=== PATIENT | female | born 2000 | race Caucasian/White ===

== ENCOUNTER 2019-02-09 17:03 | Emergency (ER) | payer OTHER | END 2019-02-09 18:17 | disposition home or self-care (01) | LOC: ED 17:03 ==

== ENCOUNTER 2019-06-20 12:38 | Emergency (ER) | payer SELFPAY ==
--- NOTE | 2019-06-20 13:29 | ERPHSYRPT ---
- History of Present Illness Time Seen by Provider: 06/20/19 13:05 Source: patient, family Exam Limitations: no limitations Physician History: sore throat, cough, right ear pain for one week. Occasional fever and chills. Timing/Duration: gradual onset Severity: moderate ENT Location: ear (R), throat Prearrival Treatment: over the counter meds Modifying Factors: Improves With: coughing Associated Symptoms: ear pain (R), cough, chills, sore throat, No facial pain/ swelling, No headache, No hearing loss, No motion sickness, No nasal congestion/ drainage, No epistaxis, No neck pain, No poor fluid intake Allergies/Adverse Reactions: Latex, Natural Rubber Allergy (Verified 02/09/19 17:18) Hx Tetanus, Diphtheria Vaccination/Date Given: No Hx Influenza Vaccination/Date Given: No Hx Pneumococcal Vaccination/Date Given: No - Review of Systems Constitutional: No Fever, No Chills Eyes: No Symptoms Ears, Nose, & Throat: No Symptoms Respiratory: Cough, No Dyspnea Cardiac: No Chest Pain, No Edema, No Syncope Abdominal/Gastrointestinal: No Abdominal Pain, No Nausea, No Vomiting, No Diarrhea Genitourinary Symptoms: No Dysuria Musculoskeletal: No Back Pain, No Neck Pain Skin: No Rash Neurological: No Dizziness, No Focal Weakness, No Sensory Changes Psychological: No Symptoms Endocrine: No Symptoms All Other Systems: Reviewed and Negative - Past Medical History Pertinent Past Medical History: Yes Psycho-Social History: Depression - Past Surgical History Past Surgical History: Yes Musculoskeletal: Orthopedic Surgery Other Surgical History: foot and arm. - Social History Smoking Status: Current every day smoker How long have you smoked: 9 Exposure to second hand smoke: Yes Drug Use: none Patient Lives Alone: No - Physical Exam General Appearance: no apparent distress, alert, other (ppatient examined in the presence of her boyfriend) Eye Exam: bilateral eye: PERRL, EOMI Ear Exam: bilateral ear: TM red Nasal Exam: normal inspection Throat Exam: moist mucus membranes, pharynx swelling (pharyngeal erythema), No tonsillar exudate Neck Exam: supple Cardiovascular/Respiratory Exam: normal breath sounds, regular rate/rhythm Abdominal Exam: non-tender, soft Neurologic Exam: alert, oriented x 3, sensation nml, No motor deficits Skin Exam: normal color, warm, dry - Course Nursing assessment & vital signs reviewed: Yes Ordered Tests: Medication Summary Generic Name Dose Route Start Last Admin Trade Name Freq PRN Reason Stop Dose Admin Prednisone 20 mg 06/21/19 13:30 Deltasone 20 Mg PO 06/21/19 13:31 STAT ONE Discontinued Medications Generic Name Dose Route Start Last Admin Trade Name Freq PRN Reason Stop Dose Admin Hydrocodone Bitart/Acetaminophen 1 tab 06/20/19 13:28 Onset 5/325 Mg PO 06/20/19 13:29 STAT ONE Ceftriaxone Sodium 1,000 mg 06/20/19 13:28 Rocephin 1000 Mg Inj IM 06/20/19 13:29 STAT ONE - Progress Progress: unchanged Progress Note: 06/20/19 13:31 afebrile, nontoxic. No right upper limb threatening condition. Symptoms for one week. Counseled pt/family regarding: diagnosis, need for follow-up - Departure Departure Disposition: Home Clinical Impression: Acute otitis media, bilateral Acute pharyngitis Qualifiers: Pharyngitis/tonsillitis etiology: unspecified etiology Qualified Code(s): J02.9 - Acute pharyngitis, unspecified Acute bronchitis Qualifiers: Bronchitis organism: unspecified organism Qualified Code(s): J20.9 - Acute bronchitis, unspecified Condition: Good Critical Care Time: No Referrals: DOCTOR,NO FAMILY [Primary Care Provider] - 06/22/19 Instructions: Sore Throat, Adult (DC), Ear Infections (Otitis Media) (DC), Acute Bronchitis, Adult (DC) Prescriptions: Azithromycin 250 mg [Zithromax 250 MG TABLET] 250 mg PO ZPACK #6 tablet
[2019-06-20 13:33] VITALS: BP 109/78; PULSE 64; O2SAT 99
[2019-06-20] MEDS ORDERED: Zithromax 250 MG TABLET ONE (13:40)
[2019-06-20] MEDS ORDERED: DELTASONE 20 MG ONE (13:40)
[2019-06-20] MEDS ORDERED: XYLOCAINE 1% HCL 20 ML MDV ONE (13:41)
[2019-06-20] MEDS ORDERED: NORCO 5/325 MG ONE (13:41)
[2019-06-20] MEDS ORDERED: Rocephin 1000 MG INJ ONE (13:41)
[2019-06-20] MEDS: Rocephin 1000 MG INJ IM ONE (13:50)
[2019-06-20] MEDS: DELTASONE 20 MG PO ONE (13:52)
[2019-06-20] MEDS: Zithromax 250 MG TABLET PO ONE (13:52)
[2019-06-20] MEDS: NORCO 5/325 MG PO ONE (13:52)
== END 2019-06-20 14:16 | disposition home or self-care (01) ==
LOC: ED 12:38
DX: H66.93 Otitis media, unspecified, bilateral (principal); J02.9 Acute pharyngitis, unspecified; J20.9 Acute bronchitis, unspecified
CPT/HCPCS: 96372; 99284; J0696; A9270-GY

== ENCOUNTER 2019-12-17 14:27 | Emergency (ER) | payer OTHER ==
--- NOTE | 2019-12-17 14:39 | ERPHSYRPT ---
- History of Present Illness Time Seen by Provider: 12/17/19 14:39 Source: patient Exam Limitations: no limitations Physician History: This is a 19-year-old white female who was walking with her dog 2 days ago and the leash wrapped around patient's left ankle causing a abrasion, some bruising and pain. Patient has been walking on it but today there is been more swelling and more pain. She is concerned there may be a fracture present. Patient's last tetanus shot was within the last 10 years Method of Injury: twisted Occurred: days ago (2) Severity of Pain-Max: mild Severity of Pain-Current: mild Lower Extremities Pain: foot: left, ankle: left Modifying Factors: Improves With: movement Associated Symptoms: other (Hurts to bear weight but is able to do so) Allergies/Adverse Reactions: Latex, Natural Rubber Allergy (Verified 12/17/19 14:44) Home Medications: No Reportable Medications [No Reported Medications] 12/17/19 [History] Hx Tetanus, Diphtheria Vaccination/Date Given: No Hx Influenza Vaccination/Date Given: No Hx Pneumococcal Vaccination/Date Given: No Travel Risk - International Travel Have you traveled outside of the country in past 3 weeks: No - Coronavirus Screening Are you exhibiting any of the following symptoms?: No Close contact with a COVID-19 positive Pt in past 14-21 Days: No - Review of Systems Constitutional: No Symptoms Eyes: No Symptoms Ears, Nose, & Throat: No Symptoms Respiratory: No Symptoms Cardiac: No Symptoms Abdominal/Gastrointestinal: No Symptoms Genitourinary Symptoms: No Symptoms Musculoskeletal: No Symptoms Skin: No Symptoms Neurological: No Symptoms Psychological: No Symptoms Endocrine: No Symptoms Hematologic/Lymphatic: No Symptoms Immunological/Allergic: No Symptoms All Other Systems: Reviewed and Negative - Past Medical History Pertinent Past Medical History: Yes Neurological History: No Pertinent History ENT History: No Pertinent History Cardiac History: No Pertinent History Respiratory History: No Pertinent History Endocrine Medical History: No Pertinent History Musculoskeletal History: No Pertinent History GI Medical History: No Pertinent History History: No Pertinent History Psycho-Social History: Depression Female Reproductive Disorders: No Pertinent History - Past Surgical History Past Surgical History: Yes Neuro Surgical History: No Pertinent History Cardiac: No Pertinent History Respiratory: No Pertinent History Gastrointestinal: No Pertinent History Genitourinary: No Pertinent History Musculoskeletal: Orthopedic Surgery Female Surgical History: No Pertinent History Other Surgical History: foot and arm. - Social History Smoking Status: Current every day smoker How long have you smoked: 9 Exposure to second hand smoke: Yes Drug Use: none Patient Lives Alone: No - Nursing Vital Signs Nursing Vital Signs: Initial Vital Signs Temperature 97.9 F 12/17/19 14:33 Pulse Rate 70 12/17/19 14:33 Blood Pressure 139/83 12/17/19 14:33 O2 Sat by Pulse Oximetry 98 12/17/19 14:33 Pain Scale Pain Intensity 6 - Physical Exam General Appearance: no apparent distress, alert, anxiety Eyes, Ears, Nose, Throat Exam: normal ENT inspection, moist mucous membranes Neck Exam: normal inspection, non-tender, supple, full range of motion Cardiovascular/Respiratory Exam: chest non-tender, no respiratory distress Gastrointestinal/Abdominal Exam: non-tender Back Exam: normal inspection, normal range of motion, No CVA tenderness, No vertebral tenderness Hips Exam: bilateral: non-tender, normal inspection, normal range of motion, no evidence of injury Legs Exam: bilateral leg: non-tender, normal inspection, normal range of motion, no evidence of injury Knees Exam: bilateral knee: non-tender, normal inspection, normal range of motion, no evidence of injury Ankle Exam: right ankle: non-tender, normal inspection, normal range of motion, no evidence of injury, left ankle: abrasions/laceration (Abrasion left ankle), ecchymosis, soft tissue tenderness, swelling Foot Exam: right foot: non-tender, normal inspection, normal range of motion, no evidence of injury, left foot: soft tissue tenderness, swelling Neuro/Tendon Exam: normal sensation, normal motor functions, normal tendon functions, responds to pain Mental Status Exam: alert, oriented x 3, cooperative Skin Exam: normal color, warm, dry SpO2 Interpretation: normal O2 Delivery: Room Air Ordered Tests: Active Orders 24 hr Category Date Time Status ANKLE (3 VIEWS) Stat Exams 12/17/19 14:46 Ordered FOOT (MINIMUM 3 VIEWS) Stat Exams 12/17/19 14:46 Ordered LOWER LEG Stat Exams 12/17/19 14:46 Ordered - Progress Progress: unchanged Progress Note: 12/17/19 15:21 X-ray of left ankle, lower leg, foot reveal no acute fracture or dislocation Counseled pt/family regarding: diagnosis, need for follow-up, rad results - Departure Departure Disposition: Home Clinical Impression: Left ankle sprain Condition: Stable Critical Care Time: No Referrals: KIRSTEN BEGUM MD [Primary Care Provider] - [id number] Additional Instructions: Keep left leg elevated above level of heart when not ambulating. Weightbearing as tolerated. Ice pack to area 3 times a day for the next 48 hours. Use Tylenol and ibuprofen for pain control. Keep the abrasion site clean with soap and water and may apply once a day antibiotic ointment. Follow-up with [facility] orthopedic clinic if symptoms persist.
[2019-12-17] MEDS ORDERED: BACIGUENT PACKET TP ONE (15:26)
[2019-12-17 15:45] VITALS: BP 101/62; PULSE 60; O2SAT 96
--- NOTE | 2019-12-17 20:04 | XRAY ---
Indication: Pain following injury. Comparison: None 3 view left ankle demonstrates minimal lateral soft tissue swelling. No other bony, articular, or soft tissue abnormalities.
--- NOTE | 2019-12-17 20:06 | XRAY ---
Indication: Pain following injury. Comparison: None AP/lateral left lower leg obtained. No bony, articular, or soft tissue abnormalities.
--- NOTE | 2019-12-17 20:06 | XRAY ---
Indication: Pain following injury. Comparison: None 3 nonweightbearing views left foot demonstrates tiny navicular accessory ossicle. No other bony, articular, or soft tissue abnormalities.
== END 2019-12-17 15:46 | disposition home or self-care (01) ==
LOC: ED 14:27
DX: S93.402A Sprain of unspecified ligament of left ankle, initial encounter (principal); S90.512A Abrasion, left ankle, initial encounter; M25.572 Pain in left ankle and joints of left foot; W01.198A Fall on same level from slipping, tripping and stumbling with subsequent striking against other object, initial encounter; Y93.K1 Activity, walking an animal; Y92.89 Other specified places as the place of occurrence of the external cause; R58 Hemorrhage, not elsewhere classified
CPT/HCPCS: 73590; 73610; 73630; 99284; A9270-GY

== ENCOUNTER 2022-11-22 17:11 | Emergency (ER) | payer OTHER ==
[2022-11-22 17:21] VITALS: O2SAT 98
--- NOTE | 2022-11-22 18:02 | ERPHSYRPT ---
- History of Present Illness Source: patient Exam Limitations: no limitations Patient Subjective Stated Complaint: Pt states "I was drinking last night and got stupid and hit my head on my ceiling and I think I broke my foot." Triage Nursing Assessment: Pt presented alert and oriented X 3, skin pwd. Pt ambulates with a limp. PT has bruise noted to center of forehead and bruising left dorsal foot, tenderness noted as well. Physician History: 22 yo wf hit her head on her ceiling and her L foot on a cabinet 2 days ago while drinking alcohol. She denies LOC but was dazed. Her L foot pain is moderate, and her headache is minimal. She denies C, T, and L-spine pain/chest pain/abdominal pain/UE pain/Hip pain/. Occurred: other (2 nights ago) Reason for Fall: lost balance (While drinking) Injuries/Pain Location: head, lower (L foot) Loss of Consciousness: no loss of consciousness, dazed Quality: aching Severity of Pain-Max: moderate Severity of Pain-Current: moderate Modifying Factors: Improves With: movement Associated Symptoms (Fall): denies symptoms Allergies/Adverse Reactions: Latex, Natural Rubber Allergy (Verified 02/03/21 12:48) Home Medications: No Reportable Medications [No Reported Medications] 12/17/19 [History] Hx Tetanus, Diphtheria Vaccination/Date Given: No Hx Influenza Vaccination/Date Given: No Hx Pneumococcal Vaccination/Date Given: No Immunizations Up to Date: Yes Travel Risk - International Travel Have you traveled outside of the country in past 3 weeks: No - Coronavirus Screening Are you exhibiting any of the following symptoms?: No Close contact with a COVID-19 positive Pt in past 14-21 Days: No - Vaccine Status Have you recieved a Covid-19 vaccination: No - Review of Systems Constitutional: No Symptoms Eyes: No Symptoms Ears, Nose, & Throat: No Symptoms Respiratory: No Symptoms Cardiac: No Symptoms Abdominal/Gastrointestinal: No Symptoms Genitourinary Symptoms: No Symptoms Skin: No Symptoms Neurological: No Symptoms Psychological: No Symptoms Endocrine: No Symptoms Hematologic/Lymphatic: No Symptoms Immunological/Allergic: No Symptoms - Past Medical History Pertinent Past Medical History: Yes Neurological History: No Pertinent History ENT History: No Pertinent History Cardiac History: No Pertinent History Respiratory History: No Pertinent History Endocrine Medical History: No Pertinent History Musculoskeletal History: No Pertinent History GI Medical History: No Pertinent History History: No Pertinent History Psycho-Social History: Depression Female Reproductive Disorders: No Pertinent History - Past Surgical History Past Surgical History: Yes Neuro Surgical History: No Pertinent History Cardiac: No Pertinent History Respiratory: No Pertinent History Gastrointestinal: No Pertinent History Genitourinary: No Pertinent History Musculoskeletal: Orthopedic Surgery Female Surgical History: No Pertinent History Other Surgical History: foot and arm. - Social History Smoking Status: Current every day smoker How long have you smoked: 9 Exposure to second hand smoke: Yes Drug Use: none Patient Lives Alone: No - Female History Hx Last Menstrual Period: 11/07/2022 Hx Now: No - Nursing Vital Signs Nursing Vital Signs: Initial Vital Signs Temperature 98.6 F 11/22/22 17:17 Pulse Rate 75 11/22/22 17:17 Respiratory Rate 20 11/22/22 17:17 Blood Pressure 150/83 11/22/22 17:17 O2 Sat by Pulse Oximetry 98 11/22/22 17:17 Pain Scale Pain Intensity 4 Hypertensive - Rene Coma Score Best Eye Response (Atl[place]): (4) open spontaneously Best Verbal Response (Rene): (5) oriented Best Motor Response ([place]): (6) obeys commands [place] Total: 15 - Physical Exam General Appearance: no apparent distress Head Injury: swelling (Small glabellar hematoma) Eye Exam: PERRL/EOMI, eyes nml inspection ENT Exam: airway nml, No evidence of ENT injury, No clear fluid (ears), No clear fluid (nose) Neck Exam: supple, trachea midline (C-spine NTTP) Respiratory/Chest Exam: normal breath sounds, No chest tenderness, No respiratory distress Cardiovascular Exam: normal heart sounds, regular rate/rhythm, normal peripheral pulses, No murmur Gastrointestinal Exam: soft, normal bowel sounds, No tenderness Back Exam: normal inspection, No vertebral tenderness Extremity Exam: pelvis stable, other (L dorsal foot TTP w small ecchymotic area) Peripheral Pulses: carotid (R): 2+, carotid (L): 2+ Neurologic Exam: alert, oriented x 3, cooperative, muck miner II-XII nml as tested, normal mood/affect, nml cerebellar function, nml station & gait, sensation nml, No motor deficits, No sensory deficit Skin Exam: normal color, warm, dry SpO2 Interpretation: normal SpO2: 98 O2 Delivery: Room Air - Course Nursing assessment & vital signs reviewed: Yes - Radiology Exams Foot X-ray Interpretation: Interpreted by me (Fx L 5th prox phalanyx) - CT Exams Head CT Interpretation: Tele-radiologist Report (Head CT neg ) Ordered Tests: Active Orders 24 hr Category Date Time Status Daniel Bandage Application -[facility] STAT Care 11/22/22 18:39 Completed Splint STAT Care 11/22/22 18:35 Completed FOOT (MINIMUM 3 VIEWS) Stat Exams 11/22/22 17:27 Taken HEAD WITHOUT CONTRAST [CT] Stat Exams 11/22/22 17:27 Completed - Progress Progress Note: 11/22/22 19:25 Nursing note and vital signs reviewed No food or housing insecurities noted 11/22/22 19:26 L foot XR w L 5th prox digit per ER read CT head neg per Telerad L foot daniel wrap/post-op shoe per nursing/NVI Pt refused pain meds and asked for a work excuse. She states that she's ok for tomorrow. 11/22/22 19:28 Pt advised to f/u w PCP or Ortho Clinic Counseled pt/family regarding: diagnosis, need for follow-up, rad results Medical Desision Making - Diagnostic Testing Radiological Interpretation: Interpreted by me, Teleradiologist Report - Risk of complications Low Risk: Low risk of morbidity from additional dx testing or treatment - Departure Departure Disposition: Home Clinical Impression: Fracture of toe of left foot, Minor head injury Condition: Stable Critical Care Time: No Referrals: JAYASHREE SPEAR MD [Primary Care Provider] - Follow up/PCP as directed ORTHO - JUSTA LAU NP [NON-STAFF PHY W/O PRIVILEGES] - Follow up/PCP as directed Instructions: Toe Fracture (DC), Minor Head Injury (DC) Additional Instructions: Motrin/Tylenol for pain Daniel wrap post-op shoe for 3-4 days Follow up with your family MD or Orthopedic clinic M-Fr 8-10AM Weight bearing as tolerated Forms: Work/School Release Form
--- NOTE | 2022-11-22 18:31 | XRAY ---
CLINICAL HISTORY:Hit head on ceiling a few days ago; COMPARISON:None; TECHNIQUES:Contiguous, multislice, nonenhanced CT scan of the brain in the axial plane with multiplanar reconstructions in bony and soft tissue windows, CTDI- 53.92 mGy ;Total DLP-1058.31 mGy.cm; FINDINGS: Normal CT attenuation of both cerebral hemispheres with no areas of abnormal attenuation values. No suspicious space-occupying lesions. No intra or extra-axial collections of fresh blood density. Normal size and shape of the ventricles, basal cisterns and cortical sulci. Basal ganglia, thalamus and internal capsule appear normal. Brainstem and irena appear normal. No shift of midline structures. Unremarkable posterior fossa. Largely preserved cranial calvarial bones. Visualized paranasal sinuses appear clear. IMPRESSION: No acute intracranial abnormality. Electronically Signed by: Soren Moreno MD. (11/22/2022 17:25:32 [employer])
[2022-11-22 18:40] VITALS: BP 120/68; PULSE 70
--- NOTE | 2022-11-22 21:15 | XRAY ---
Indication: Pain following injury. Comparison: December 17, 2019 3 nonweightbearing views left foot demonstrates new nondisplaced oblique fracture base 5th proximal phalanx with soft tissue swelling. No other bony, articular, or soft tissue abnormalities.
== END 2022-11-22 18:58 | disposition home or self-care (01) ==
LOC: ED 17:11
DX: S92.515A Nondisplaced fracture of proximal phalanx of left lesser toe(s), initial encounter for closed fracture (principal); W22.03XA Walked into furniture, initial encounter; S09.90XA Unspecified injury of head, initial encounter; W22.8XXA Striking against or struck by other objects, initial encounter; Z28.310 Unvaccinated for COVID-19; Z72.0 Tobacco use
CPT/HCPCS: 70450; 73630; 99283

== ENCOUNTER 2023-06-22 22:12 | Emergency (ER) | payer SELFPAY ==
[2023-06-22 22:40] VITALS: RESP 16; TEMP 97.8; O2SAT 100
[2023-06-22 23:06] LABS: Absolute Neutrophil Ct (ANC) 3.97 x10^3/uL (1.4-6.9); BASOPHIL % 0.8 % (0.0-0.4); Basophil (Absolute #) 0.05 x10^3/uL (0-0.4); Eosinophil % 3.8 % (0.00-5.0); Eosinophil (Absolute #) 0.25 x10^3/uL (0-0.5); Hematocrit 44.3 % (35-47); Hemoglobin 14.8 g/dL (12.0-16.0); IMMATURE GRAN # 0.03 x10^3u/L (0.00-0.03); IMMATURE GRAN % 0.5 % (0.00-0.4); Lymphocyte (Absolute #) 1.51 x10^3/uL (1.0-4.6); Lymphocytes % 22.8 % (24.0-44.0); Mean Cell Volume 92.3 fL (78-100); Mean Corpuscular Hemoglobin 30.8 pg (26-32); Mean Corpuscular Hgb Concent. 33.4 g/dL (32-36); Mean Platelet Volume 9.5 fL (7.5-11.0); Monocytes % 12.1 % (0.0-12.0); Platelet Count 231 x10^3/uL (150-450); Red Cell Distribution Width 12.2 % (11.5-14.0); White Blood Count 6.6 x10^3/uL (4.0-10.5)
[2023-06-22 23:20] LABS: ALBUMIN 4.1 g/dL (3.5-5.0); ANION GAP 10.3 MEQ/L (5-15); BILIRUBIN,TOTAL 0.8 mg/dL (0.2-1.3); Calcium 9.3 mg/dL (8.4-10.2); Creatinine 1 0.66 mg/dL (0.52-1.04); EST GLOMERULAR FILTRATION RATE 124.8 ML/MIN; Potassium 3.9 mmol/L (3.5-5.1); Total Protein 6.8 g/dL (6.3-8.2)
[2023-06-22 23:30] LABS: Appearance Clear (Clear); Bilirubin Negative (Negative); Blood Large (Negative); Epithelial Cells Few /HPF (None Seen); Glucose, Urine Negative (Negative); Hyaline Casts NONE SEEN /LPF (0-2); Ketones Negative (Negative); Leukocyte Esterase Small (Negative); Nitrite Negative (Negative); Ph 6.5 (4.6-8.0); Protein,Urine Dip Negative (Negative); RBC 0-2 /HPF (0-5); Urobilinogen 0.2 mg/dL (0.2)
[2023-06-22 23:31] LABS: Bacteria Few /HPF (None Seen)
[2023-06-22 23:32] LABS: ADD URINE CULTURE? YES (NO); Trichomonas Moderate /HPF (None Seen)
--- NOTE | 2023-06-22 23:37 | ERPHSYRPT ---
- History of Present Illness Time Seen by Provider: 06/22/23 22:30 Source: patient Exam Limitations: no limitations Patient Subjective Stated Complaint: pt states she has been having some vaginal bleeding for approx a week. states today she has been having some pain that f eels like period cramping. states pain is in her lower back. Triage Nursing Assessment: pt alert and oriented. answers questions approp. pt ambulates into room with steady gait noted. respirations nonlabored. skin warm and dry. pt reports pain in lower back which feels like her period cramps. Physician History: Patient is a 23-year-old female currently 10 weeks by dates presents to our ED for evaluation of vaginal bleeding cramping and low back pain. Symptoms started approximately 1 week ago. Patient states she has been passing large clots throughout the day. No active bleeding at this time. Symptoms are mild to moderate in intensity. No specific worsening or improving factors. Patient voices no other complaints or concerns at this time. Portions of this note were created with voice recognition technology. There may be grammatical, spelling, punctuation or sound alike errors Timing/Duration: today Severity: moderate Modifying Factors: Improves With: nothing Associated Symptoms: denies symptoms Allergies/Adverse Reactions: Latex, Natural Rubber Allergy (Verified 06/22/23 22:40) Hx Tetanus, Diphtheria Vaccination/Date Given: No Hx Influenza Vaccination/Date Given: No Hx Pneumococcal Vaccination/Date Given: No Immunizations Up to Date: No Travel Risk - International Travel Have you traveled outside of the country in past 3 weeks: No - Coronavirus Screening Are you exhibiting any of the following symptoms?: No Close contact with a COVID-19 positive Pt in past 14-21 Days: No - Vaccine Status Have you recieved a Covid-19 vaccination: No - Review of Systems Constitutional: No Symptoms, No Fever, No Chills Eyes: No Symptoms Ears, Nose, & Throat: No Symptoms Respiratory: No Symptoms, No Cough, No Dyspnea Cardiac: No Symptoms, No Chest Pain, No Edema, No Syncope Abdominal/Gastrointestinal: No Symptoms, No Abdominal Pain, No Nausea, No Vo miting, No Diarrhea Genitourinary Symptoms: No Symptoms, No Dysuria Musculoskeletal: No Symptoms, No Back Pain, No Neck Pain Skin: No Symptoms, No Rash Neurological: No Symptoms, No Dizziness, No Focal Weakness, No Sensory Changes Psychological: No Symptoms Endocrine: No Symptoms Hematologic/Lymphatic: No Symptoms Immunological/Allergic: No Symptoms All Other Systems: Reviewed and Negative - Past Medical History Pertinent Past Medical History: Yes Neurological History: No Pertinent History ENT History: No Pertinent History Cardiac History: No Pertinent History Respiratory History: No Pertinent History Endocrine Medical History: No Pertinent History Musculoskeletal History: No Pertinent History GI Medical History: No Pertinent History History: No Pertinent History Psycho-Social History: Depression Female Reproductive Disorders: No Pertinent History - Past Surgical History Past Surgical History: Yes Neuro Surgical History: No Pertinent History Cardiac: No Pertinent History Respiratory: No Pertinent History Gastrointestinal: No Pertinent History Genitourinary: No Pertinent History Musculoskeletal: Orthopedic Surgery Female Surgical History: No Pertinent History Other Surgical History: foot and arm. - Social History Smoking Status: Current every day smoker How long have you smoked: 10yrs Exposure to second hand smoke: Yes Drug Use: none Patient Lives Alone: No - Female History Hx Now: Yes Gestational Age: 10weeks - Nursing Vital Signs Nursing Vital Signs: Initial Vital Signs Temperature 97.8 F 06/22/23 22:21 Pulse Rate 64 06/22/23 22:21 Respiratory Rate 16 06/22/23 22:21 Blood Pressure 114/68 06/22/23 22:21 O2 Sat by Pulse Oximetry 100 06/22/23 22:21 Pain Scale Pain Intensity 2 - Physical Exam General Appearance: no apparent distress, alert Eye Exam: PERRL/EOMI, eyes nml inspection Ears, Nose, Throat Exam: normal ENT inspection, TMs normal, pharynx normal, moist mucous membranes Neck Exam: normal inspection, non-tender, supple, full range of motion Respiratory Exam: normal breath sounds, lungs clear, airway intact, No respi ratory distress Cardiovascular Exam: regular rate/rhythm, normal heart sounds, normal peripheral pulses Gastrointestinal/Abdomen Exam: soft, normal bowel sounds, No tenderness, No mass Pelvic Exam: normal external exam, vaginal bleeding, No adnexal tenderness, No adnexal mass, No cervical motion tenderness, No uterine tenderness, No vaginal discharge Back Exam: normal inspection, normal range of motion, No CVA tenderness, No vertebral tenderness Extremity Exam: normal inspection, normal range of motion, pelvis stable Neurologic Exam: alert, oriented x 3, cooperative, normal mood/affect, nml cerebellar function, nml station & gait, sensation nml, No motor deficits Skin Exam: normal color, warm, dry, No rash Lymphatic Exam: No adenopathy SpO2 Interpretation: normal SpO2: 100 O2 Delivery: Room Air - Course Nursing assessment & vital signs reviewed: Yes Ordered Tests: Active Orders 24 hr Category Date Time Status IV Insertion STAT Care 06/22/23 22:37 Active CBC W DIFF Stat Lab 06/22/23 23:00 Completed CMP Stat Lab 06/22/23 23:00 Completed CULTURE,URINE Stat Lab 06/22/23 22:45 Received HCG, Quantitative (Inhouse) Stat Lab 06/22/23 23:00 Completed UA W/RFX UR CULTURE Stat Lab 06/22/23 22:45 Completed Medication Summary Discontinued Medications Generic Name Dose Route Start Last Admin Trade Name Luis PRN Reason Stop Dose Admin Metronidazole 500 mg 06/23/23 01:35 06/23/23 01:37 Metronidazole 500 Mg Tablet PO 06/23/23 01:36 500 mg STAT ONE Administration Metronidazole Confirm 06/23/23 01:35 Metronidazole 500 Mg Tablet Administered 06/23/23 01:36 Dose 500 mg .ROUTE .STK-MED ONE Nitrofurantoin Macrocrystals 100 mg 06/23/23 01:34 06/23/23 01:37 Nitrofurantoin Macro 100 Mg Capsule PO 06/23/23 01:35 100 mg STAT ONE Administration Nitrofurantoin Macrocrystals Confirm 06/23/23 01:35 Nitrofurantoin Macro 100 Mg Capsule Administered 06/23/23 01:36 Dose 100 mg .ROUTE .STK-MED ONE Lab/Rad Data: Laboratory Result Diagrams 06/22/23 23:00 06/22/23 23:00 Laboratory Results 06/23/23 06/22/23 06/22/23 Range/Units 00:15 Unknown 23:00 WBC (4.0-10.5) x10^3/uL RBC (4.1-5.4) x10^6/uL Hgb (12.0-16.0) g/dL Hct (35-47) % MCV (78-100) fL MCH (26-32) pg MCHC (32-36) g/dL RDW (11.5-14.0) % Plt Count (150-450) x10^3/uL MPV (7.5-11.0) fL Gran % (36.0-66.0) % Immature Gran % (Auto) (0.00-0.4) % Nucleat RBC Rel Count (0.00-0.1) % Eos # (Auto) (0-0.5) x10^3/uL Immature Gran # (Auto) (0.00-0.03) x10^3u/L Absolute Lymphs (auto) (1.0-4.6) x10^3/uL Absolute Monos (auto) (0.0-1.3) x10^3/uL Absolute Nucleated RBC (0.00-0.01) x10^3u/L Lymphocytes % (24.0-44.0) % Monocytes % (0.0-12.0) % Eosinophils % (0.00-5.0) % Basophils % (0.0-0.4) % Absolute Granulocytes (1.4-6.9) x10^3/uL Basophils # (0-0.4) x10^3/uL Sodium (137-145) mmol/L Potassium (3.5-5.1) mmol/L Chloride (98-107) mmol/L Carbon Dioxide (22-30) mmol/L Anion Gap (5-15) MEQ/L BUN (7-17) mg/dL Creatinine (0.52-1.04) mg/dL Estimated GFR ML/MIN Glucose (74-106) mg/dL Calcium (8.4-10.2) mg/dL Total Bilirubin (0.2-1.3) mg/dL AST (14-36) U/L ALT (0-35) U/L Alkaline Phosphatase (38-126) U/L Serum Total Protein (6.3-8.2) g/dL Albumin (3.5-5.0) g/dL Beta HCG, Quant 87778 mIU/ml Urine Color (Yellow) Urine Appearance (Clear) Urine pH (4.6-8.0) Ur Specific [place] (1.005-1.030) Urine Protein (Negative) Urine Glucose (UA) (Negative) mg/dL Urine Ketones (Negative) Urine Blood (Negative) Urine Nitrite (Negative) Urine Bilirubin (Negative) Urine Urobilinogen (0.2) mg/dL Ur Leukocyte Esterase (Negative) U Hyaline Cast (Auto) (0-2) /LPF Urine Microscopic RBC (0-5) /HPF Urine Microscopic WBC (0-5) /HPF Ur Epithelial Cells (None Seen) /HPF Urine Bacteria (None Seen) /HPF Urine Trichomonas (None Seen) /HPF Urine Culture Reflexed (NO) Vaginal Grecia Group NOT DETECTED (NEGATIVE) Grecia species NOT DETECTED (NEGATIVE) Chlamydia DNA Probe NOT DETECTED (NEGATIVE) N.gonorrhoeae DNA Probe NOT DETECTED (NEGATIVE) T. vaginalis (PCR) DETECTED A (NEGATIVE) Bact vaginosis (PCR) POSITIVE A (NEGATIVE) ABO Group Rh Factor Antibody Screen (NEGATIVE) 06/22/23 06/22/23 06/22/23 Range/Units 23:00 23:00 23:00 WBC 6.6 (4.0-10.5) x10^3/uL RBC 4.80 (4.1-5.4) x10^6/uL Hgb 14.8 (12.0-16.0) g/dL Hct 44.3 (35-47) % MCV 92.3 (78-100) fL MCH 30.8 (26-32) pg MCHC 33.4 (32-36) g/dL RDW 12.2 (11.5-14.0) % Plt Count 231 (150-450) x10^3/uL MPV 9.5 (7.5-11.0) fL Gran % 60.0 (36.0-66.0) % Immature Gran % (Auto) 0.5 H (0.00-0.4) % Nucleat RBC Rel Count 0.0 (0.00-0.1) % Eos # (Auto) 0.25 (0-0.5) x10^3/uL Immature Gran # (Auto) 0.03 (0.00-0.03) x10^3u/L Absolute Lymphs (auto) 1.51 (1.0-4.6) x10^3/uL Absolute Monos (auto) 0.80 (0.0-1.3) x10^3/uL Absolute Nucleated RBC 0.00 (0.00-0.01) x10^3u/L Lymphocytes % 22.8 L (24.0-44.0) % Monocytes % 12.1 H (0.0-12.0) % Eosinophils % 3.8 (0.00-5.0) % Basophils % 0.8 (0.0-0.4) % Absolute Granulocytes 3.97 (1.4-6.9) x10^3/uL Basophils # 0.05 (0-0.4) x10^3/uL Sodium 135 L (137-145) mmol/L Potassium 3.9 (3.5-5.1) mmol/L Chloride 106 (98-107) mmol/L Carbon Dioxide 23 (22-30) mmol/L Anion Gap 10.3 (5-15) MEQ/L BUN 11 (7-17) mg/dL Creatinine 0.66 (0.52-1.04) mg/dL Estimated GFR 124.8 ML/MIN Glucose 99 (74-106) mg/dL Calcium 9.3 (8.4-10.2) mg/dL Total Bilirubin 0.80 (0.2-1.3) mg/dL AST 22 (14-36) U/L ALT 13 (0-35) U/L Alkaline Phosphatase 48 (38-126) U/L Serum Total Protein 6.8 (6.3-8.2) g/dL Albumin 4.1 (3.5-5.0) g/dL Beta HCG, Quant mIU/ml Urine Color (Yellow) Urine Appearance (Clear) Urine pH (4.6-8.0) Ur Specific [place] (1.005-1.030) Urine Protein (Negative) Urine Glucose (UA) (Negative) mg/dL Urine Ketones (Negative) Urine Blood (Negative) Urine Nitrite (Negative) Urine Bilirubin (Negative) Urine Urobilinogen (0.2) mg/dL Ur Leukocyte Esterase (Negative) U Hyaline Cast (Auto) (0-2) /LPF Urine Microscopic RBC (0-5) /HPF Urine Microscopic WBC (0-5) /HPF Ur Epithelial Cells (None Seen) /HPF Urine Bacteria (None Seen) /HPF Urine Trichomonas (None Seen) /HPF Urine Culture Reflexed (NO) Vaginal Grecia Group (NEGATIVE) Grecia species (NEGATIVE) Chlamydia DNA Probe (NEGATIVE) N.gonorrhoeae DNA Probe (NEGATIVE) T. vaginalis (PCR) (NEGATIVE) Bact vaginosis (PCR) (NEGATIVE) ABO Group O Rh Factor POSITIVE Antibody Screen NEGATIVE (NEGATIVE) 06/22/23 Range/Units 22:45 WBC (4.0-10.5) x10^3/uL RBC (4.1-5.4) x10^6/uL Hgb (12.0-16.0) g/dL Hct (35-47) % MCV (78-100) fL MCH (26-32) pg MCHC (32-36) g/dL RDW (11.5-14.0) % Plt Count (150-450) x10^3/uL MPV (7.5-11.0) fL Gran % (36.0-66.0) % Immature Gran % (Auto) (0.00-0.4) % Nucleat RBC Rel Count (0.00-0.1) % Eos # (Auto) (0-0.5) x10^3/uL Immature Gran # (Auto) (0.00-0.03) x10^3u/L Absolute Lymphs (auto) (1.0-4.6) x10^3/uL Absolute Monos (auto) (0.0-1.3) x10^3/uL Absolute Nucleated RBC (0.00-0.01) x10^3u/L Lymphocytes % (24.0-44.0) % Monocytes % (0.0-12.0) % Eosinophils % (0.00-5.0) % Basophils % (0.0-0.4) % Absolute Granulocytes (1.4-6.9) x10^3/uL Basophils # (0-0.4) x10^3/uL Sodium (137-145) mmol/L Potassium (3.5-5.1) mmol/L Chloride (98-107) mmol/L Carbon Dioxide (22-30) mmol/L Anion Gap (5-15) MEQ/L BUN (7-17) mg/dL Creatinine (0.52-1.04) mg/dL Estimated GFR ML/MIN Glucose (74-106) mg/dL Calcium (8.4-10.2) mg/dL Total Bilirubin (0.2-1.3) mg/dL AST (14-36) U/L ALT (0-35) U/L Alkaline Phosphatase (38-126) U/L Serum Total Protein (6.3-8.2) g/dL Albumin (3.5-5.0) g/dL Beta HCG, Quant mIU/ml Urine Color Yellow (Yellow) Urine Appearance Clear (Clear) Urine pH 6.5 (4.6-8.0) Ur Specific [place] 1.020 (1.005-1.030) Urine Protein Negative (Negative) Urine Glucose (UA) Negative (Negative) mg/dL Urine Ketones Negative (Negative) Urine Blood Large A (Negative) Urine Nitrite Negative (Negative) Urine Bilirubin Negative (Negative) Urine Urobilinogen 0.2 (0.2) mg/dL Ur Leukocyte Esterase Small A (Negative) U Hyaline Cast (Auto) NONE SEEN (0-2) /LPF Urine Microscopic RBC 0-2 (0-5) /HPF Urine Microscopic WBC 11-20 A (0-5) /HPF Ur Epithelial Cells Few (None Seen) /HPF Urine Bacteria Few A (None Seen) /HPF Urine Trichomonas Moderate A (None Seen) /HPF Urine Culture Reflexed YES (NO) Vaginal Grecia Group (NEGATIVE) Grecia species (NEGATIVE) Chlamydia DNA Probe (NEGATIVE) N.gonorrhoeae DNA Probe (NEGATIVE) T. vaginalis (PCR) (NEGATIVE) Bact vaginosis (PCR) (NEGATIVE) ABO Group Rh Factor Antibody Screen (NEGATIVE) - Progress Progress: improved Progress Note: Patient is 23-year-old female presents to our ED for evaluation of vaginal bleeding. Patient is reportedly 10 weeks . Physical exam shows blood in the vaginal canal. No active bleeding. Patient is trichomonas BV positive. Patient also has a urinary tract infection. Patient informed her significant other regarding the findings. He is planning on following up at [facility] tomorrow. Patient is Rh+. No indication for RhoGAM. Patient's beta quant is 18,000 which appears to be lower than what would be expected at 10 weeks. Patient has a follow-up appointment scheduled in 5 days with her primary care physician. Outpatient beta quant ordered. Hopefully the results will be available for her visit with Dr. Schmidt. CBC CMP essentially nonremarkable Portions of this note were created with voice recognition technology. There may be grammatical, spelling, punctuation or sound alike errors Complexity problem addressed is moderate acute complicated No critical care time Complexity of data reviewed and analyzed is moderate. Test ordered test reviewed. Results analyzed and correlated clinically with history and physical exam. Risk of complication and a risk of morbidity/mortality of patient management is moderate. A prescription for Macrobid and Flagyl forwarded to patient's pharmacy. Vital stable. Time spent to discharge patient is approximately 30 minutes. Plan of care established for shared decision making. No social determinants of health present impede follow-up. Portions of this note were created with voice recognition technology. There may be grammatical, spelling, punctuation or sound alike errors 06/23/23 01:46 Counseled pt/family regarding: lab results, diagnosis, need for follow-up - Departure Departure Disposition: Home Clinical Impression: Trichomonas infection, Bacterial vaginosis, Threatened miscarriage, Vaginal bleeding Condition: Stable Critical Care Time: No Referrals: JAYASHREE SPEAR MD [Primary Care Provider] - Follow up/PCP as directed Additional Instructions: Discharge/Care Plan VICKYRUBÉN WALLS was seen on 06/23/23 in the Emergency Room. The patient was counseled regarding Diagnosis,Lab results, Imaging studies, need for follow up and when to return to the Emergency Room. Prescriptions given: Discharge Note I have spoken with the patient and/or caregivers. I have explained the patient's condition, diagnosis and treatment plan based on the information available to me at this time. I have answered the patient's and/or caregiver's questions and addressed any concerns. The patient and/or caregivers have as good understanding of the patient's diagnosis, condition and treatment plan as can be expected at this point. The vital signs have been stable. The patient's condition is stable and appropriate for discharge from the emergency department. The patient will pursue further outpatient evaluation with the primary care p hysician or other designated or consulting physician as outlined in the discharge instructions. The patient and/or caregivers are agreeable to this plan of care and follow-up instructions have been explained in detail. The patient and/or caregivers have received these instruction. The patient/and or caregivers are aware that any significant change in condition or worsening of symptoms should prompt an immediate return to this or the closest emergency department or call 911. Prescriptions: Metronidazole 500 mg [Flagyl 500 MG] 500 mg PO BID 7 Days #14 tablet Nitrofurantoin Macro 100 mg [Macrobid 100MG Capsule] 100 mg PO BID 7 Days #14 cap
[2023-06-22 23:47] LABS: ABO TYPING O; Antibody Screen NEGATIVE (NEGATIVE); RH TYPING POSITIVE
[2023-06-23 01:16] LABS: CHLAMYDIA DNA NOT DETECTED (NEGATIVE); GC DNA Probe NOT DETECTED (NEGATIVE)
[2023-06-23 01:17] LABS: Candida Group NOT DETECTED (NEGATIVE); Candida glab/krus NOT DETECTED (NEGATIVE)
[2023-06-23] MEDS ORDERED: Macrobid 100MG Capsule PO ONE (01:34)
[2023-06-23 01:35] VITALS: BP 102/60; PULSE 61
[2023-06-23] MEDS ORDERED: Macrobid 100MG Capsule ONE (01:35)
[2023-06-23] MEDS ORDERED: Flagyl 500 MG ONE (01:35)
[2023-06-23] MEDS ORDERED: Flagyl 500 MG PO ONE (01:35)
== END 2023-06-23 01:50 | disposition home or self-care (01) ==
LOC: ED 22:12
DX: O20.0 Threatened abortion (principal); Z3A.10 10 weeks gestation of pregnancy; O98.311 Other infections with a predominantly sexual mode of transmission complicating pregnancy, first trimester; A59.01 Trichomonal vulvovaginitis; R10.9 Unspecified abdominal pain; M54.50 Low back pain, unspecified; Z28.310 Unvaccinated for COVID-19; Z72.0 Tobacco use
CPT/HCPCS: 36415; 80053; 81001; 84702; 85025; 86850; 86900; 86901; 87086; 87481; 87491; 87591; 87661; 87801; 99283; A9270-GY

== ENCOUNTER 2024-03-09 19:28 | Emergency (ER) | payer MEDICAID ==
[2024-03-09 19:45] VITALS: RESP 18; TEMP 97.6; O2SAT 96
--- NOTE | 2024-03-09 20:28 | ERPHSYRPT ---
- History of Present Illness Time Seen by Provider: 03/09/24 19:41 Source: patient Exam Limitations: no limitations Patient Subjective Stated Complaint: pt states that she was drinking and fell off a curb and twisted her ankle and foot Triage Nursing Assessment: pt ambulated into the er; pt is axo x4; c/o left foot pain; pt states 5/10 pain worsening with ambulation; swelling and bruising present to left lateral and dorsal foot; swelling present to left ankle; strong left pedal pulse; skin PDW; no respiratory distress present; vitals wnl Physician History: 24 years old female presented in the ER after she tripped on a curb side this morning and twisted her left ankle. Patient reports moderate intensity sharp pain right foot, aggravated with weightbearing and better with being still. Gradually increasing swelling. Has minimal pain in the ankle. No injury anywhere else. Diffuse swelling dorsum of foot with some abrasion. Minimal swelling of lateral malleoli are area. Minimal tenderness lateral malleolus. Tenderness at the base of fifth metatarsal. Painful movements at the toes. Intact distal neurovascular. Minimal tenderness at lateral malleolus. No tenderness medial malleolus. Offered pain medication which she declined. X-rays ankle are negative for fracture dislocation and x-rays foot showed fifth metatarsal base nondisplaced fracture. X-rays are reviewed by me, official report is pending. Placed in a posterior splint, nonweightbearing and outpatient podiatry follow-up recommended. Recommended elevation, ice and NSAIDs for pain control. Discussed signs symptoms of worsening needing return to ER which she seems understanding. Stable for discharge. Allergies/Adverse Reactions: Latex, Natural Rubber Allergy (Verified 03/09/24 19:34) Hx Tetanus, Diphtheria Vaccination/Date Given: No (unknown) Hx Influenza Vaccination/Date Given: No Hx Pneumococcal Vaccination/Date Given: No Travel Risk - International Travel Have you traveled outside of the country in past 3 weeks: No - Emerging Infectious Disease Are you exhibiting symptoms associated with any current EIDs: No - Review of Systems Constitutional: No Symptoms Eyes: No Symptoms Respiratory: No Symptoms Cardiac: No Symptoms Abdominal/Gastrointestinal: No Symptoms Musculoskeletal: Injury, Joint Redness, Joint Pain, Joint Swelling Skin: No Symptoms, Skin Lesions Neurological: No Symptoms Endocrine: No Symptoms Hematologic/Lymphatic: No Symptoms - Past Medical History Pertinent Past Medical History: Yes Neurological History: No Pertinent History ENT History: No Pertinent History Cardiac History: No Pertinent History Respiratory History: No Pertinent History Endocrine Medical History: No Pertinent History Musculoskeletal History: No Pertinent History GI Medical History: No Pertinent History History: No Pertinent History Psycho-Social History: Depression Female Reproductive Disorders: No Pertinent History - Past Surgical History Past Surgical History: Yes Neuro Surgical History: No Pertinent History Cardiac: No Pertinent History Respiratory: No Pertinent History Gastrointestinal: No Pertinent History Genitourinary: No Pertinent History Musculoskeletal: Orthopedic Surgery Female Surgical History: No Pertinent History Other Surgical History: foot and arm. foreign body removed - Female History Hx Now: No - Social History Smoking Status: Current every day smoker How long have you smoked: 10yrs Exposure to second hand smoke: Yes Drug Use: none Patient Lives Alone: No - Social Determinants of Health Will the patient participate in the screening: Yes Do you worry about a steady place to live?: No Do you have any problems with any of the following?: No known problems In the past 12 months,have you had to go without utilities?: No Transportation Issues: No Has anyone in your support network made you feel unsafe?: No Have you or anyone in your house had to go without enough: No - Nursing Vital Signs Nursing Vital Signs: Initial Vital Signs Temperature 97.6 F 03/09/24 19:34 Pulse Rate 72 03/09/24 19:34 Respiratory Rate 18 03/09/24 19:34 Blood Pressure 119/70 03/09/24 19:34 O2 Sat by Pulse Oximetry 96 03/09/24 19:34 Pain Scale Pain Intensity 5 - Physical Exam General Appearance: no apparent distress, alert Neck Exam: normal inspection, full range of motion Cardiovascular/Respiratory Exam: normal breath sounds, regular rate/rhythm Ankle Exam: right ankle: non-tender, normal inspection, normal range of motion, no evidence of injury, left ankle: bone tenderness, pain, soft tissue tenderness, swelling Foot Exam: right foot: non-tender, normal inspection, normal range of motion, no evidence of injury, left foot: bone tenderness (Base of fifth metatarsal), limited range of motion, pain, soft tissue tenderness, swelling Neuro/Tendon Exam: normal sensation, normal motor functions, normal tendon functions Mental Status Exam: alert, oriented x 3, cooperative Skin Exam: normal color SpO2 Interpretation: normal SpO2: 96 O2 Delivery: Room Air Procedures - Splinting Location of Splint: Left, Foot, Ankle Type of Splint: Orthoglass Short Leg Splint Ordered Tests: Active Orders 24 hr Category Date Time Status ANKLE (3 VIEWS) Stat Exams 03/09/24 19:35 Taken FOOT (MINIMUM 3 VIEWS) Stat Exams 03/09/24 19:35 Taken - Progress Progress: unchanged Progress Note: 03/09/24 20:28 24 years old female presented in the ER after she tripped on a curb side this morning and twisted her left ankle. Patient reports moderate intensity sharp pain right foot, aggravated with weightbearing and better with being still. Gradually increasing swelling. Has minimal pain in the ankle. No injury anywhere else. Diffuse swelling dorsum of foot with some abrasion. Minimal swelling of lateral malleoli are area. Minimal tenderness lateral malleolus. Tenderness at the ba se of fifth metatarsal. Painful movements at the toes. Intact distal neurovascular. Minimal tenderness at lateral malleolus. No tenderness medial malleolus. Offered pain medication which she declined. X-rays ankle are negative for fracture dislocation and x-rays foot showed fifth metatarsal base nondisplaced fracture. X-rays are reviewed by me, official report is pending. Placed in a posterior splint, nonweightbearing and outpatient podiatry follow-up recommended. Recommended elevation, ice and NSAIDs for pain control. Discussed signs symptoms of worsening needing return to ER which she seems understanding. Stable for discharge. 03/09/24 20:29 Counseled pt/family regarding: diagnosis, need for follow-up, rad results Medical Desision Making - Diagnostic Testing Diagnostic test were ordered, analyzed, and reviewed by me: Yes Radiological Interpretation: Interpreted by me, Reviewed by me - Risk of complications The pt has a mod risk of morbidity or mortality based on: Need for prescription drug management - Departure Departure Disposition: Home Clinical Impression: Foot fracture, left Condition: Stable Critical Care Time: No Referrals: JAYASHREE SPEAR MD [Primary Care Provider] - Follow up with PCP 1 day DOMINGO COOK DPM [ACTIVE STAFF] - Follow up/PCP as directed (Call for appointment for reevaluation in the morning) Instructions: Foot Fracture (DC) Additional Instructions: Take Tylenol/ibuprofen as needed. Nonweightbearing. Elevation, intermittent ice application. Follow-up with podiatry for reevaluation. Return to ER for any worsening. Prescriptions: Ibuprofen 600 mg PO Q6HPRN PRN 10 Days #20 tablet PRN Reason: Pain
[2024-03-09 20:38] VITALS: BP 113/82; PULSE 76
--- NOTE | 2024-03-10 08:52 | XRAY ---
Indication: Pain and swelling following fall. Comparison: November 22, 2022 3 nonweightbearing views left foot demonstrates new nondisplaced acute hairline fracture base 5th metatarsal. Again tiny posterior heel spur. No other bony, articular, or soft tissue abnormalities.
--- NOTE | 2024-03-10 08:52 | XRAY ---
Indication: Pain and swelling following fall. Comparison: December 17, 2019 3 view left ankle demonstrates minimal anterior soft tissue swelling. New tiny posterior heel spur. No other bony, articular, or soft tissue abnormalities.
== END 2024-03-09 20:45 | disposition home or self-care (01) ==
LOC: ED 19:28
DX: S92.355A Nondisplaced fracture of fifth metatarsal bone, left foot, initial encounter for closed fracture (principal); M79.672 Pain in left foot; M25.572 Pain in left ankle and joints of left foot; W01.0XXA Fall on same level from slipping, tripping and stumbling without subsequent striking against object, initial encounter; F17.200 Nicotine dependence, unspecified, uncomplicated
CPT/HCPCS: 29515; 73610; 73630; 99283